=== PATIENT | male | born 1970 | race Two or more races ===

== ENCOUNTER 2023-11-19 | Emergency (ER) | payer MEDICARE, OTHER ==
[~2023-11-19] VITALS: Ht 175.3 cm; Wt 85.3 kg
[2023-11-19] MEDS ORDERED: HYDROCODONE/APAP 5/325MG TABLET ONE (00:36)
[2023-11-19 00:38] VITALS: BP 135/81; TEMP 98.5
[2023-11-19] MEDS: HYDROCODONE/APAP 5/325MG TABLET PO ONE (00:41)
[2023-11-19 00:56] VITALS: O2SAT 99
== END 2023-11-19 00:59 ==
LOC: ER 00:27
DX: G89.29 Other chronic pain (principal); M25.562 Pain in left knee; Z86.73 Personal history of transient ischemic attack (TIA), and cerebral infarction without residual deficits